=== PATIENT | female | born 1950 | race Caucasian/White ===

== ENCOUNTER 2024-08-03 18:11 | Emergency (ER) | payer MEDICARE, SELFPAY ==
[2024-08-03 18:16] VITALS: BP 127/66; PULSE 84; RESP 18; TEMP 36.4; O2SAT 98
--- NOTE | 2024-08-03 18:25 | CTR_ITS ---
PROCEDURE INFORMATION: Exam: CT Head Without Contrast Exam date and time: 08/03/2024 6:25 PM Age: 73 years old Clinical indication: Stroke-like symptoms; Speech disturbance; Additional info: Possible stroke TECHNIQUE: Imaging protocol: Computed tomography of the head without contrast. Radiation optimization: All CT scans at this facility use at least one of these dose optimization techniques: automated exposure control; mA and/or kV adjustment per patient size (includes targeted exams where dose is matched to clinical indication); or iterative reconstruction. Other technique: STROKE PROTOCOL was implemented. COMPARISON: No relevant prior studies available. RADIATION DOSE METRICS: Total DLP (mGy-cm): 1079.118 FINDINGS: Tubes, catheters and devices: There is a right TOWER WATCHMAN shunt catheter in place from a right posterior parietal approach with its tip in the left lateral ventricle. Brain: There is moderate cortical atrophy. Low-density changes in the white matter are consistent with nonspecific small vessel chronic ischemic change. There is no intracranial mass, hemorrhage or edema. Cerebral ventricles: Ventricle size is consistent with degree of cortical atrophy. Paranasal sinuses: Visualized sinuses are unremarkable. No fluid levels. Mastoid air cells: Visualized mastoid air cells are well aerated. Bones: Unremarkable. No acute fracture. Soft tissues: Unremarkable. CT/CT head thrombolytic [id number] IMPRESSION: No acute intracranial finding. ASSESSMENT: ASPECTS (Candice Stroke Program Early CT Score) is 10.
--- NOTE | 2024-08-03 18:25 | XRR_ITS ---
PROCEDURE INFORMATION: Exam: XR Chest Exam date and time: 08/03/2024 6:59 PM Age: 73 years old Clinical indication: Other: Weakness TECHNIQUE: Imaging protocol: Radiologic exam of the chest. Views: 1 view. COMPARISON: No relevant prior studies available. FINDINGS: Tubes, catheters and devices: There is a ENAMEL PULVERIZER shunt catheter on the right side of the neck and chest extending to the upper abdomen. This catheter is not very well seen on this study. Lungs: Visualized portions of the lungs are clear. Pleural spaces: Unremarkable. No pleural effusion. No pneumothorax. Heart/Mediastinum: Heart is within normal limits of size. Bones/joints: There are mild degenerative changes in the thoracic spine. XR/XR chest 1V portable [id number] IMPRESSION: No acute infiltrate.
--- NOTE | 2024-08-03 18:25 | ECG_ITS ---
[facility]24[facility] Pat Name: Lucina Zavaleta Department: Room: Gender: Female Purification Director: : [id number] Requested By: Erica Parry Order Number: [id number] Reading MD: SOLEDAD LA Measurements Intervals [place] Rate: 74 P: 52 AL: 191 QRS: 32 QRSD: 88 T: 44 QT: 402 QTc: 448 Interpretive Statements SINUS RHYTHM No previous ECG available for comparison Electronically Signed On 08-05-2024 19:28:25 GRANTS AND CONTRACTS ASSISTANT by SOLEDAD LA [id number]
--- NOTE | 2024-08-03 18:49 | W.ED.NEUROSD ---
HPI - Neuro Symptoms/Deficit General: Chief Complaint: Neuro Symptoms/Deficit Stated Complaint: Confused,dizzy ,high BP, has a shunt Time Seen by Provider: 08/03/24 18:25 History of Present Illness: 73-year-old female with a history of OFFSET PRESS OPERATOR HELPER shunt placed about 3 years ago who presents emergency room with an acute onset of confusion and some gait abnormality she was apparently confused a bit dizzy and her blood pressure was high. On presentation here I do not see any acute abnormalities. No focal weakness. No confusion. No slurred speech. Related Data Allergies Allergy/AdvReac Type Severity Reaction Status Date / Time No Known Allergies Allergy Verified 08/03/24 18:21 Review of Systems Narrative: Constitutional symptoms: Negative except as documented in HPI. Skin symptoms: Negative except as documented in HPI. Eye symptoms: Negative except as documented in HPI. ENMT symptoms: Negative except as documented in HPI. Respiratory symptoms: Negative except as documented in HPI. Cardiovascular symptoms: Negative except as documented in HPI. Gastrointestinal symptoms: Negative except as documented in HPI. Genitourinary symptoms: Negative except as documented in HPI. Musculoskeletal symptoms: Negative except as documented in HPI. Neurologic symptoms: Negative except as documented in HPI. Psychiatric symptoms: Negative except as documented in HPI. Endocrine symptoms: Negative except as documented in HPI. Physical Exam Narrative: EXAM NARRATIVE: General: Alert, no acute distress. Skin: Warm, dry. Head: Normocephalic, atraumatic. Neck: Supple, trachea midline. Eye: Extraocular movements are intact. Ears, nose, mouth and throat: mucosa moist. Cardiovascular: Regular, Normal peripheral perfusion. Respiratory: Lungs are clear to auscultation, respirations are non-labored, breath sounds are equal, Symmetrical chest wall expansion. Gastrointestinal: Soft, Nontender, Non distended Musculoskeletal: Normal ROM, no deformity. Neurological: Alert and oriented, No focal neurological deficit observed. Psychiatric: Cooperative, appropriate mood & affect. Course Vital Signs: Vital signs: Vital Signs Temperature 97.6 F 08/03/24 18:16 Pulse Rate 82 08/03/24 21:05 Respiratory Rate 18 08/03/24 21:05 Blood Pressure 118/74 08/03/24 21:05 Pulse Oximetry 94 08/03/24 21:05 Oxygen Delivery Me thod Room Air 08/03/24 20:37 MDM - Neuro Symptoms/Deficit Medical Decision Making Medical decision making: Differential diagnosis for patient with focal neurologic deficit(s) includes but not limited to and based on the above HPI, review of systems and physical exam: ischemic stroke, hemorrhagic stroke and embolic stroke secondary to atrial fibrillation), TIA, Han's palsey, metabolic encephalopathy with previous stroke. Orders placed to evaluate differential diagnosis based on the above differential, HPI and physical exam CT head: No acute intracranial process. no intracranial hemorrhage, no evidence of infarct. no evidence of acute fracture.This was reviewed and interpreted by myself the ER physician. There is a OFFSET PRESS OPERATOR HELPER shunt placed. Some atrophy. Otherwise no acute process. I discussed this with the radiologist that was on-call. Reexamination: Was called back into the room and patient had acute onset of expressive aphasia. This lasted about 2 minutes. I come back to ask if she was on any blood thinners and she was able to speak plainly again. Apparently this is gone in and out a few times. At some point she had some word salad. Consultation: I spoke with Dr. Stern who was not on-call but is a neurologist that works here. She recommends consultation with [facility] stroke team and probable transfer there. Consultation: I spoke with [facility] stroke team and they do recommend transfer. They requested a shunt series which appears normal. At which point they we will except. Lab Review: Laboratory results were reviewed and interpreted by myself the emergency room physician. Lab review is unremarkable. No leukocytosis. No anemia. No renal failure. Urinalysis is negative for infection. No flu COVID or RSV. I reviewed the patient's medical record. Reexamination: At my most recent visit to the room the patient has no neurodeficits and no speech deficits at this time. Family did report that she has had symptoms some word salad at times and brief episodes of aphasia. Consultation: I spoke again with a different stroke neurologist at [facility]. He recommends Keppra as this sounds like it may be some sort of focal seizure. Patient is now accepted. Assessment and plan: TIA OFFSET PRESS OPERATOR HELPER shunt present Expressive aphasia ?Patient being transferred to [facility] for further workup by neurology. Differential still would include TIA versus possible seizures etc. patient accepted by the general neurology team at [facility]. Patient refuses to fly. She will be transferred ground transfer whenever a bed becomes available. - Discharged home - Discussed plan with patient. Answered any questions. - Evaluation and treatment of this problem were appropriate in the emergency setting. Lab Data 08/03/24 18:57 08/03/24 18:57 Radiology Impressions Chest X-Ray 08/03/24 18:25 IMPRESSION: No acute infiltrate. Head CT 08/03/24 18:25 IMPRESSION: No acute intracranial finding. ASSESSMENT: ASPECTS (Candice Stroke Program Early CT Score) is 10. ADDENDUM: 08/03/24 1846 Addendum: THIS REPORT CONTAINS FINDINGS THAT MAY BE CRITICAL TO PATIENT CARE. The findings were verbally communicated via telephone conference with MARCIAL WORRELL at 6:44 PM NAVAL ENGINEER on 08/03/2024. The findings were acknowledged and understood. Imaging Shunt Series 08/03/24 20:11 Impression: OFFSET PRESS OPERATOR HELPER shunt catheter appears to be grossly intact. Laboratory Results WBC 7.93 10^3/uL (3.29-11.43) 08/03/24 18:57 RBC 4.29 10^6/uL (3.85-5.65) 08/03/24 18:57 Hgb 12.70 g/dL (11.27-16.99) 08/03/24 18:57 Hct 40.0 % (36-47) 08/03/24 18:57 MCV 93.2 fl (85-98) 08/03/24 18:57 MCH 29.6 pg (27-33) 08/03/24 18:57 MCHC 31.8 g/dL (30-55) 08/03/24 18:57 RDW 13.7 % (12.1-15.1) 08/03/24 18:57 Plt Count 267 10^3/cmm (157-399) 08/03/24 18:57 MPV 9.1 fL (7.4-10.4) 08/03/24 18:57 Neut % (Auto) 47.2 % 08/03/24 18:57 Lymph % (Auto) 41.4 % 08/03/24 18:57 Sibley % (Auto) 8.1 % 08/03/24 18:57 Eos % (Auto) 2.4 % 08/03/24 18:57 Baso % (Auto) 0.6 % 08/03/24 18:57 Neut # (Auto) 3.75 10^3/uL (1.8-7.7) 08/03/24 18:57 Lymph # (Auto) 3.3 10^3/uL (0.8-4.8) 08/03/24 18:57 Sibley # (Auto) 0.6 10^3/uL (0.2-0.9) 08/03/24 18:57 Eos # (Auto) 0.2 10^3/uL (0.0-0.8) 08/03/24 18:57 Baso # (Auto) 0.1 10^3/uL (0.0-0.1) 08/03/24 18:57 Nucleated RBC % (auto) 0 % 08/03/24 18:57 Nucleated RBCs # 0.0 /100WBC 08/03/24 18:57 PT 12.40 SECONDS (12.1-14.9) 08/03/24 18:57 INR 0.86 (0.8-1.2) 08/03/24 18:57 APTT 25.8 SECONDS (23.9-36.7) 08/03/24 18:57 Sodium 139 mmol/L (136-145) 08/03/24 18:57 Potassium 4.1 mmol/L (3.5-5.1) 08/03/24 18:57 Chloride 102 mmol/L (98-107) 08/03/24 18:57 Carbon Dioxide 29 mmol/L (22-29) 08/03/24 18:57 Anion Gap 12.1 (5-19) 08/03/24 18:57 BUN 16 mg/dL (8-23) 08/03/24 18:57 Creatinine 0.7 mg/dL (0.5-0.9) 08/03/24 18:57 GFR Calculation Not Reportable 08/03/24 18:57 Glucose 84 mg/dL (65-115) 08/03/24 18:57 Calculated Osmolality 288 mOsm/kg (285-295) 08/03/24 18:57 Lactic Acid 0.7 mmol/L (0.5-2.2) 08/03/24 18:57 Calcium 9.0 mg/dL (8.5-10.5) 08/03/24 18:57 Total Bilirubin 0.3 mg/dL (0.15-1.2) 08/03/24 18:57 AST 33 U/L (0-32) H 08/03/24 18:57 ALT 41 U/L (0-33) H 08/03/24 18:57 Alkaline Phosphatase 88 U/L (35-105) 08/03/24 18:57 C-Reactive Protein 3.0 mg/L (0.0-4.9) 08/03/24 18:57 Total Protein 7.1 g/dL (6.6-8.7) 08/03/24 18:57 Albumin 4.2 g/dL (3.5-5.2) 08/03/24 18:57 Globulin 2.9 g/dL (1.3-4.6) 08/03/24 18:57 Urine Color Yellow (Yellow) 08/03/24 19:09 Urine Appearance Clear (CLEAR) 08/03/24 19:09 Urine pH 7.5 (5-7) 08/03/24 19:09 Ur Specific Wheeler 1.015 (1.005-1.030) 08/03/24 19:09 Urine Protein Negative (Negative) 08/03/24 19:09 Urine Glucose (UA) Negative (Normal) 08/03/24 19:09 Urine Ketones Negative (Negative) 08/03/24 19:09 Urine Blood Negative (Negative) 08/03/24 19:09 Urine Nitrate Negative (Negative) 08/03/24 19:09 Urine Bilirubin Negative (Negative) 08/03/24 19:09 Urine Urobilinogen 0.2 mg/dL (Negative) 08/03/24 19:09 Ur Leukocyte Esterase Trace (Negative) A 08/03/24 19:09 Urine RBC 0-2 /hpf (0-2) 08/03/24 19:09 Urine WBC 0-5 /hpf (0-5) 08/03/24 19:09 Ur Squamous Epith Cells 0-5 /hpf (0-5) 08/03/24 19:09 Amorphous Sediment Not Reportable 08/03/24 19:09 Urine Bacteria None seen /hpf (NONE) 08/03/24 19:09 Hyaline Casts 0-4 /lpf H 08/03/24 19:09 Coronavirus (PCR) Negative (Negative) 08/03/24 19:09 Influenza A (PCR) Negative (Negative) 08/03/24 19:09 Influenza Type B (PCR) Negative (Negative) 08/03/24 19:09 RSV (PCR) Negative (Negative) 08/03/24 19:09 All radiology interpretation(s) finalized by discharge Discharge Plan Discharge Patient Disposition: Xfer Short-Term Hosp Clinical Impression: Transient cerebral ischemia, Expressive aphasia, OFFSET PRESS OPERATOR HELPER (ventriculoperitoneal) shunt status Condition: Stable Print Language: Turkish Coding Level of Care Code ED Tour Consultant for Ginger Kay
[2024-08-03 19:07] LABS: Basophils # 0.1 10^3/uL (0.0-0.1); Basophils % 0.6 %; Eosinophils # 0.2 10^3/uL (0.0-0.8); Eosinophils % 2.4 %; Lymphocytes # 3.3 10^3/uL (0.8-4.8); Lymphocytes % 41.4 %; Mean Corpuscular HGB Conc 31.8 g/dL (30-55); Mean Corpuscular Hemoglobin 29.6 pg (27-33); Mean Corpuscular Volume 93.2 fl (85-98); Mean Platelet Volume 9.1 fL (7.4-10.4); Monocytes # 0.6 10^3/uL (0.2-0.9); Monocytes % 8.1 %; Neutrophils # 3.75 10^3/uL (1.8-7.7); Neutrophils % 47.2 %; Nucleated Red Blood Cells % 0 %; Platelet Count 267 10^3/cmm (157-399); Red Blood Count 4.29 10^6/uL (3.85-5.65); Red Cell Distribution Width 13.7 % (12.1-15.1); White Blood Count 7.93 10^3/uL (3.29-11.43)
[2024-08-03 19:14] LABS: INR 0.86 (0.8-1.2)
[2024-08-03 19:15] LABS: Partial Thromboplastin Time 25.8 SECONDS (23.9-36.7)
[2024-08-03 19:21] LABS: Bilirubin Urine Negative (Negative); Blood Urine Negative (Negative); Glucose Urine UA Negative (Normal); Ketones Urine Negative (Negative); Leukocyte Esterase Urine Trace (Negative); Nitrate Urine Negative (Negative); Protein Urine Negative (Negative); Specific Gravity, Urine 1.015 (1.005-1.030); Urine Appearance Clear (CLEAR); Urine Color Yellow (Yellow); Urobilinogen Urine 0.2 mg/dL (Negative); pH Urine 7.5 (5-7)
[2024-08-03 19:23] LABS: Lactic Sepsis W/Reflex 0.7 mmol/L (0.5-2.2)
[2024-08-03 19:23] LABS: Bacteria Urine None Seen /hpf; Hyaline Casts Urine 0-4 /lpf; RBC Urine 0-2 /hpf (0-2); Squamous Epithelial Cell Urine 0-5 /hpf (0-5); WBC Urine 0-5 /hpf (0-5)
[2024-08-03 19:24] LABS: Alanine Aminotransferase 41 U/L (0-33); Albumin Level 4.2 g/dL (3.5-5.2); Alkaline Phosphatase 88 U/L (35-105); Anion Gap 12.1 (5-19); Aspartate Amino Transferase 33 U/L (0-32); Blood Urea Nitrogen 16 mg/dL (8-23); Carbon Dioxide 29 mmol/L (22-29); Chloride 102 mmol/L (98-107); Globulin 2.9 g/dL (1.3-4.6); Glucose 84 mg/dL (65-115); Osmolality Calculated 288 mOsm/kg (285-295); Potassium 4.1 mmol/L (3.5-5.1); Sodium 139 mmol/L (136-145); Total Bilirubin 0.3 mg/dL (0.15-1.2); Total Protein 7.1 g/dL (6.6-8.7)
[2024-08-03 19:31] VITALS: BP 131/66; PULSE 77; RESP 18; O2SAT 99
[2024-08-03 20:00] LABS: Influenza A NEGATIVE (Negative); Influenza B NEGATIVE (Negative); Respiratory Syncytial Virus Ce NEGATIVE (Negative); SARS-CoV-2 PCR NEGATIVE (Negative)
--- NOTE | 2024-08-03 20:11 | XRR_ITS ---
PROCEDURE INFORMATION: Exam: XR Shunt Series With 4 XR Procedures Exam date and time: 08/03/2024 8:17 PM Age: 73 years old Clinical indication: Nausea; Other: Shunt series; Prior surgery; Surgery date: 6+ months; Additional info: Hospice Rn shunt TECHNIQUE: Imaging protocol: XR Shunt Series was performed with skull less than 4 views, neck 1 view, chest 1 view, and abdomen 1 view. This study includes 1 portable AP radiograph that includes the head, neck and upper chest and an AP portable radiographs of the chest and upper abdomen. COMPARISON: CT head thrombolytic [id number] 08/03/2024 6:25 PM FINDINGS: Limitations: Study is limited by portable technique. Findings:BROADCAST OPERATIONS TECHNICIAN shunt tubing seen along the right side of the neck and chest. This is seen extending below the diaphragm and within the right side of the abdomen. This tube appears continuous without suspicion for break but not optimally evaluated on this portable exam. XR/XR shunt series Impression: BROADCAST OPERATIONS TECHNICIAN shunt catheter appears to be grossly intact.
[2024-08-03 20:37] VITALS: BP 138/80; PULSE 77; RESP 18; O2SAT 94
--- NOTE | 2024-08-03 20:44 | CTR_ITS ---
PROCEDURE INFORMATION: Exam: CTA Head With Contrast, Arteriography Exam date and time: 08/03/2024 9:13 PM Age: 73 years old Clinical indication: Dizziness and giddiness and other: Confusion; Prior surgery; Surgery date: 6+ months; Surgery type: Shunt; Additional info: Possible stroke TECHNIQUE: Imaging protocol: Computed tomographic angiography of the head with contrast. Exam focused on the arteries. 3D rendering (Not supervised by radiologist): MIP and/or 3D reconstructed images were created by the technologist. Radiation optimization: All CT scans at this facility use at least one of these dose optimization techniques: automated exposure control; mA and/or kV adjustment per patient size (includes targeted exams where dose is matched to clinical indication); or iterative reconstruction. Contrast material: OMNI 350; Contrast volume: 100 ml; Contrast route: INTRAVENOUS (IV); COMPARISON: CT head thrombolytic [id number] 08/03/2024 6:25 PM RADIATION DOSE METRICS: Total DLP (mGy-cm): 398.49 FINDINGS: Tubes, catheters and devices: TRUCK SALES REPRESENTATIVE shunt catheter is again seen with its tip in the left lateral ventricle. ANTERIOR CIRCULATION: Right internal carotid artery: Intracranial segment is patent with no significant stenosis. No aneurysm. Right middle cerebral artery: No occlusion or significant stenosis. No aneurysm. Right anterior cerebral artery: No occlusion or significant stenosis. No aneurysm. Left internal carotid artery: Intracranial segment is patent with no significant stenosis. No aneurysm. Left middle cerebral artery: No occlusion or significant stenosis. No aneurysm. Left anterior cerebral artery: No occlusion or significant stenosis. No aneurysm. POSTERIOR CIRCULATION: Right vertebral artery: No occlusion or significant stenosis. No aneurysm. Left vertebral artery: No occlusion or significant stenosis. No aneurysm. Basilar artery: No occlusion or significant stenosis. No aneurysm. Right posterior cerebral artery: There is origin of the right posterior cerebral artery. Left posterior cerebral artery: No occlusion or significant stenosis. No aneurysm. Brain: No definite mass, mass effect, or midline shift. Cerebral ventricles: No ventriculomegaly. Bones/joints: Unremarkable. No acute fracture. Soft tissues: Unremarkable. PROCEDURE INFORMATION: Exam: CTA Neck With Contrast Exam date and time: 08/03/2024 9:13 PM Age: 73 years old Clinical indication: Dizziness and giddiness and other: Confusion; Prior surgery; Surgery date: 6+ months; Surgery type: Shunt; Additional info: Possible stroke TECHNIQUE: Imaging protocol: Computed tomographic angiography of the neck with contrast. Exam focused on the cervical segments of the vasculature. 3D rendering (Not supervised by radiologist): MIP and/or 3D reconstructed images were created by the technologist. Radiation optimization: All CT scans at this facility use at least one of these dose optimization techniques: automated exposure control; mA and/or kV adjustment per patient size (includes targeted exams where dose is matched to clinical indication); or iterative reconstruction. Contrast material: OMNI 350; Contrast volume: 100 ml; Contrast route: INTRAVENOUS (IV); COMPARISON: CR (HEAD, ) 08/03/2024 8:17 PM RADIATION DOSE METRICS: Total DLP (mGy-cm): 398.49 FINDINGS: Right common carotid artery: No stenosis. No dissection or occlusion. Right internal carotid artery: No stenosis of the extracranial segment. No dissection or occlusion. Right external carotid artery: No occlusion or stenosis of the origin. Left common carotid artery: No stenosis. No dissection or occlusion. Left internal carotid artery: No stenosis of the extracranial segment. No dissection or occlusion. Left external carotid artery: No occlusion or stenosis of the origin. Right vertebral artery: No stenosis. No dissection or occlusion. Left vertebral artery: No stenosis. No dissection or occlusion. Soft tissues: Normal. No significant soft tissue swelling. Bones/joints: Degenerative changes in the cervical spine. No acute fracture. Lungs: No acute infiltrate is seen in the lung apices. There are some mild changes of bronchiectasis. CT/CT angio headneck* [id number] IMPRESSION: No intracranial large vessel occlusion or aneurysm is identified. IMPRESSION: There is no evidence of significant stenosis in the carotid or vertebral arteries in the neck. REFERENCES: NASCET CRITERIA. The degree of stenosis in the cervical segment of the internal carotid artery is based on NASCET criteria. Normal is no stenosis. Mild is less than 50% stenosis. Moderate is 50-69% stenosis. Severe is 70% to 99% stenosis. Total occlusion is no detectable patent lumen.
[2024-08-03 21:05] VITALS: BP 118/74; PULSE 82; RESP 18; O2SAT 94
[2024-08-03] MEDS: iohexol 350 mg/mL 500 mL Btl (per mL) IV (21:13)
[2024-08-03] MEDS: levETIRAcetam 1,000 MG/100 ML PREMIX 400 MG IV (21:30)
[2024-08-03 22:32] VITALS: BP 101/56; PULSE 82; RESP 18; O2SAT 95
[2024-08-03 23:20] VITALS: BP 96/52; PULSE 80; RESP 18; O2SAT 95
[2024-08-04 01:07] VITALS: BP 108/59; PULSE 74; RESP 16; O2SAT 97
[2024-08-04 02:10] VITALS: BP 112/68; PULSE 75; RESP 18; O2SAT 97
[2024-08-04 02:40] VITALS: BP 112/68; PULSE 70; RESP 16; O2SAT 91
--- NOTE | 2024-08-04 02:42 | ED_ITS ---
HPI - Neuro Symptoms/Deficit 2 General: Chief Complaint: Neuro Symptoms/Deficit Stated Complaint: Confused,dizzy ,high BP, has a shunt Time Seen by Provider: 08/03/24 18:25 History of Present Illness: Patient had been accepted to [facility] but the bed will not be available for at least another 24 to 48 hours. After Keppra she has had no more episodes. The episode she had were rather brief and only involve speech. Family has asked that I reevaluate and we consider going home. Related Data Previous Rx's ?Medication ?Instructions ?Recorded levetiracetam 500 mg tablet 500 mg PO BID #30 tabs (Keppra) Allergies Allergy/AdvReac Type Severity Reaction Status Date / Time No Known Allergies Allergy Verified 08/03/24 18:21 Review of Systems 2 Narrative: Constitutional symptoms: Negative except as documented in HPI. Skin symptoms: Negative except as documented in HPI. Eye symptoms: Negative except as documented in HPI. ENMT symptoms: Negative except as documented in HPI. Respiratory symptoms: Negative except as documented in HPI. Cardiovascular symptoms: Negative except as documented in HPI. Gastrointestinal symptoms: Negative except as documented in HPI. Genitourinary symptoms: Negative except as documented in HPI. Musculoskeletal symptoms: Negative except as documented in HPI. Neurologic symptoms: Negative except as documented in HPI. Psychiatric symptoms: Negative except as documented in HPI. Endocrine symptoms: Negative except as documented in HPI. Physical Exam 2 Narrative: EXAM NARRATIVE: General: Alert, no acute distress. Skin: Warm, dry. Head: Normocephalic, atraumatic. Neck: Supple, trachea midline. Eye: Extraocular movements are intact. Ears, nose, mouth and throat: mucosa moist. Cardiovascular: Regular, Normal peripheral perfusion. Respiratory: Lungs are clear to auscultation, respirations are non-labored, breath sounds are equal, Symmetrical chest wall expansion. Gastrointestinal: Soft, Nontender, Non distended Musculoskeletal: Normal ROM, no deformity. Neurological: Alert and oriented, No focal neurological deficit observed. Psychiatric: Cooperative, appropriate mood & affect. Course 2 Vital Signs: Vital signs: Vital Signs Temperature 97.6 F 08/03/24 18:16 Pulse Rate 75 08/04/24 02:10 Respiratory Rate 18 08/04/24 02:10 Blood Pressure 112/68 08/04/24 02:10 Pulse Oximetry 97 08/04/24 02:10 Oxygen Delivery Me thod Room Air 08/04/24 02:10 MDM - Neuro Symptoms/Deficit Medical Decision Making Consultation: I spoke again with the stroke neurologist at [facility]. He does agree that since she has not had any further symptoms that going home on Keppra and aspirin along with her cholesterol medication is likely a reasonable alternative particularly given the family's desire to do this. He expressed that they do need close follow-up. Reexamination: I examined the patient again. She has walked down the reaves to the bathroom. It has been over 6 hours since she has had any episodes. I have discussed the risks of going home and they are aware. Assessment and plan: TIA versus brief focal seizures - Discharged home - Discussed plan with patient. Answered any questions. - Evaluation and treatment of this problem were appropriate in the emergency setting. Lab Data 08/03/24 18:57 08/03/24 18:57 Radiology Impressions Chest X-Ray 08/03/24 18:25 IMPRESSION: No acute infiltrate. Head CT 08/03/24 18:25 IMPRESSION: No acute intracranial finding. ASSESSMENT: ASPECTS (Star Stroke Program Early CT Score) is 10. ADDENDUM: 08/03/24 5726 Addendum: THIS REPORT CONTAINS FINDINGS THAT MAY BE CRITICAL TO PATIENT CARE. The findings were verbally communicated via telephone conference with ERICA ROBLEDO at 6:44 PM [employer] on 08/03/2024. The findings were acknowledged and understood. Imaging Shunt Series 08/03/24 20:11 Impression: [employer] shunt catheter appears to be grossly intact. Head/Neck CTA 08/03/24 20:44 IMPRESSION: No intracranial large vessel occlusion or aneurysm is identified. IMPRESSION: There is no evidence of significant stenosis in the carotid or vertebral arteries in the neck. REFERENCES: NASCET CRITERIA. The degree of stenosis in the cervical segment of the internal carotid artery is based on NASCET criteria. Normal is no stenosis. Mild is less than 50% stenosis. Moderate is 50-69% stenosis. Severe is 70% to 99% stenosis. Total occlusion is no detectable patent lumen. Laboratory Results WBC 7.93 10^3/uL (3.29-11.43) 08/03/24 18:57 RBC 4.29 10^6/uL (3.85-5.65) 08/03/24 18:57 Hgb 12.70 g/dL (11.27-16.99) 08/03/24 18:57 Hct 40.0 % (36-47) 08/03/24 18:57 MCV 93.2 fl (85-98) 08/03/24 18:57 MCH 29.6 pg (27-33) 08/03/24 18:57 MCHC 31.8 g/dL (30-55) 08/03/24 18:57 RDW 13.7 % (12.1-15.1) 08/03/24 18:57 Plt Count 267 10^3/cmm (157-399) 08/03/24 18:57 MPV 9.1 fL (7.4-10.4) 08/03/24 18:57 Neut % (Auto) 47.2 % 08/03/24 18:57 Lymph % (Auto) 41.4 % 08/03/24 18:57 Weber % (Auto) 8.1 % 08/03/24 18:57 Eos % (Auto) 2.4 % 08/03/24 18:57 Baso % (Auto) 0.6 % 08/03/24 18:57 Neut # (Auto) 3.75 10^3/uL (1.8-7.7) 08/03/24 18:57 Lymph # (Auto) 3.3 10^3/uL (0.8-4.8) 08/03/24 18:57 Weber # (Auto) 0.6 10^3/uL (0.2-0.9) 08/03/24 18:57 Eos # (Auto) 0.2 10^3/uL (0.0-0.8) 08/03/24 18:57 Baso # (Auto) 0.1 10^3/uL (0.0-0.1) 08/03/24 18:57 Nucleated RBC % (auto) 0 % 08/03/24 18:57 Nucleated RBCs # 0.0 /100WBC 08/03/24 18:57 PT 12.40 SECONDS (12.1-14.9) 08/03/24 18:57 INR 0.86 (0.8-1.2) 08/03/24 18:57 APTT 25.8 SECONDS (23.9-36.7) 08/03/24 18:57 Sodium 139 mmol/L (136-145) 08/03/24 18:57 Potassium 4.1 mmol/L (3.5-5.1) 08/03/24 18:57 Chloride 102 mmol/L (98-107) 08/03/24 18:57 Carbon Dioxide 29 mmol/L (22-29) 08/03/24 18:57 Anion Gap 12.1 (5-19) 08/03/24 18:57 BUN 16 mg/dL (8-23) 08/03/24 18:57 Creatinine 0.7 mg/dL (0.5-0.9) 08/03/24 18:57 GFR Calculation Not Reportable 08/03/24 18:57 Glucose 84 mg/dL (65-115) 08/03/24 18:57 Calculated Osmolality 288 mOsm/kg (285-295) 08/03/24 18:57 Lactic Acid 0.7 mmol/L (0.5-2.2) 08/03/24 18:57 Calcium 9.0 mg/dL (8.5-10.5) 08/03/24 18:57 Total Bilirubin 0.3 mg/dL (0.15-1.2) 08/03/24 18:57 AST 33 U/L (0-32) H 08/03/24 18:57 ALT 41 U/L (0-33) H 08/03/24 18:57 Alkaline Phosphatase 88 U/L (35-105) 08/03/24 18:57 C-Reactive Protein 3.0 mg/L (0.0-4.9) 08/03/24 18:57 Total Protein 7.1 g/dL (6.6-8.7) 08/03/24 18:57 Albumin 4.2 g/dL (3.5-5.2) 08/03/24 18:57 Globulin 2.9 g/dL (1.3-4.6) 08/03/24 18:57 Urine Color Yellow (Yellow) 08/03/24 19:09 Urine Appearance Clear (CLEAR) 08/03/24 19:09 Urine pH 7.5 (5-7) 08/03/24 19:09 Ur Specific [place] 1.015 (1.005-1.030) 08/03/24 19:09 Urine Protein Negative (Negative) 08/03/24 19:09 Urine Glucose (UA) Negative (Normal) 08/03/24 19:09 Urine Ketones Negative (Negative) 08/03/24 19:09 Urine Blood Negative (Negative) 08/03/24 19:09 Urine Nitrate Negative (Negative) 08/03/24 19:09 Urine Bilirubin Negative (Negative) 08/03/24 19:09 Urine Urobilinogen 0.2 mg/dL (Negative) 08/03/24 19:09 Ur Leukocyte Esterase Trace (Negative) A 08/03/24 19:09 Urine RBC 0-2 /hpf (0-2) 08/03/24 19:09 Urine WBC 0-5 /hpf (0-5) 08/03/24 19:09 Ur Squamous Epith Cells 0-5 /hpf (0-5) 08/03/24 19:09 Amorphous Sediment Not Reportable 08/03/24 19:09 Urine Bacteria None seen /hpf (NONE) 08/03/24 19:09 Hyaline Casts 0-4 /lpf H 08/03/24 19:09 Coronavirus (PCR) Negative (Negative) 08/03/24 19:09 Influenza A (PCR) Negative (Negative) 08/03/24 19:09 Influenza Type B (PCR) Negative (Negative) 08/03/24 19:09 RSV (PCR) Negative (Negative) 08/03/24 19:09 All radiology interpretation(s) finalized by discharge Discharge Plan Discharge Patient Disposition: Home Clinical Impression: Transient cerebral ischemia, Expressive aphasia, [employer] (ventriculoperitoneal) shunt status Condition: Stable Prescriptions: New levetiracetam [Keppra] 500 mg tablet 500 mg PO BID Qty: 30 0RF Discharge Orders: Discharge ED (Routine); Ordered 08/04/24 Ordered By: Erica Robledo Referrals: Tiffanie Stern MD [Physician] - 4-7 days (Please call for follow-up appointment. You will need an EEG and to discuss an MRI at some point.) Discharge Diet: Usual diet Discharge Activity: Increase activity as tolerated Patient Instructions: Transient Ischemic Attack (ED), New-Onset Seizure in Adults (ED), Opioid Safety, Pain Management Activity Restrictions/Additional Instructions: Thank you for choosing [facility] for your healthcare needs today. Please realize this is an emergency room and that we are providing you with a medical screening exam and this may not be complete and all inclusive of all the testing and or work up that you may need to determine your ailment or severity of your illness. You have been screened and evaluated and felt safe for discharge. Health conditions do change or evolve sometimes and as such it is important that you follow up with your Primary Doctor to be re checked, 3-5 days is a general good time frame for follow up. 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
== END 2024-08-04 02:53 | disposition home or self-care (01) ==
PROVIDERS: Emergency Provider Emergency Medicine
DX: G45.9 Transient cerebral ischemic attack, unspecified (principal); R47.01 Aphasia; Z98.2 Presence of cerebrospinal fluid drainage device; Z11.52 Encounter for screening for COVID-19
CPT/HCPCS: 70250; 70450; 70496; 70498; 71045; 71046; 72040; 74019; 80053; 81001; 83605; 85025; 85610; 85730; 86140; 87040; 87637; 93005; 96365; 99285; J1953

== ENCOUNTER → 2024-08-08 09:51 | Outpatient (BNVA) | payer MEDICARE, SELFPAY | PROVIDERS: Visit Provider Specialist | DX: R56.9 Unspecified convulsions (principal); G45.9 Transient cerebral ischemic attack, unspecified | CPT/HCPCS: 99205 ==

== ENCOUNTER → 2024-09-07 14:25 | Outpatient (BNVA) | payer MEDICARE, SELFPAY | PROVIDERS: Referring Provider Specialist; Visit Provider Specialist | DX: R56.9 Unspecified convulsions (principal) | CPT/HCPCS: 95816 ==

== ENCOUNTER → 2024-10-17 08:57 | Outpatient (BNVA) | payer MEDICARE, SELFPAY | PROVIDERS: Visit Provider Specialist | DX: G40.909 Epilepsy, unspecified, not intractable, without status epilepticus (principal); G25.0 Essential tremor | CPT/HCPCS: 99214 ==